=== PATIENT | female | born 1970 | race Caucasian/White ===

== ENCOUNTER 2020-12-27 15:06 | Emergency (ER) | payer BC, MEDICAID ==
--- NOTE | 2020-12-27 15:31 | EDM.PDOC ---
ED HPI GENERAL MEDICAL PROBLEM - General Chief Complaint: ENT Problem Stated Complaint: DENTAL COMPLAINT Time Seen by Provider: 12/27/20 15:12 Source of Information: Reports: Patient History Limitations: Reports: No Limitations - History of Present Illness INITIAL COMMENTS - FREE TEXT/NARRATIVE: The patient presents with left upper dental pain and swelling. She had some dental work done on last Monday. She then started having more pain a day or two later. She went to the walk in clinic and they gave her some hydrocodone. She now has more swelling. She has no fever or chills. Onset: Gradual Location: Reports: Face Quality: Reports: Sharp Severity: Moderate Improves with: Reports: None Worsens with: Reports: None Associated Symptoms: Reports: No Other Symptoms - Related Data Allergies Allergy/AdvReac Type Severity Reaction Status Date / Time No Known Allergies Allergy Verified 12/27/20 15:19 Home Meds: Home Meds Penicillin V Potassium 500 mg PO Q6HR #40 tab 12/27/20 [Rx] Past Medical History - Past Health History Medical/Surgical History: Denies Medical/Surgical History Social & Family History - Tobacco Use Tobacco Use Status *Q: Never Tobacco User - Recreational Drug Use Recreational Drug Use: No ED ROS ENT - Review of Systems Review Of Systems: See Below Constitutional: Reports: No Symptoms HEENT: Reports: Dental Pain (and facial swelling) Respiratory: Reports: No Symptoms Cardiovascular: Reports: No Symptoms Endocrine: Reports: No Symptoms GI/Abdominal: Reports: No Symptoms ED EXAM, ENT - Physical Exam Exam: See Below Exam Limited By: No Limitations General Appearance: Alert, No Apparent Distress Ears: Normal External Exam Nose: Normal Inspection Mouth/Throat: Other (Edema and erythema with pain upon palpation to the left upper medial jaw line. There is also a fluid colection.) ED I&D PROCEDURES - I&D Site: Mouth Skin prep: Saline Local anesthesia - Lidocaine (Xylocaine): Other (Lulli jose elias) Local Anesthetic Volume: 1cc Area Incised With: Needle Drainage: Purulent, Moderate Amount Complications: No Course - Vital Signs Last Recorded V/S: Last Vital Signs Temp 97.5 F 12/27/20 15:16 Pulse 83 12/27/20 15:16 Resp 18 12/27/20 15:16 BP 167/90 H 12/27/20 15:16 Pulse Ox 93 L 12/27/20 15:16 - Re-Assessments/Exams Free Text/Narrative Re-Assessment/Exam: 12/27/20 15:31 I had the patient use some topical numbing medication and I used a needle to open up the pustule. I will get her on some antibiotics. Departure - Departure Time of Disposition: 15:40 Disposition: Home, Self-Care 01 Condition: Good Clinical Impression: Dental abscess - Discharge Information *PRESCRIPTION DRUG MONITORING PROGRAM REVIEWED*: Not Applicable *COPY OF PRESCRIPTION DRUG MONITORING REPORT IN PATIENT RUTHIE: Not Applicable Prescriptions: Penicillin V Potassium 500 mg PO Q6HR #40 tab Referrals: Criss Hernandez NP [Primary Care Provider] - Forms: ED Department Discharge Additional Instructions: Take the penicillin VK as prescribed. Put warm compresses on your face a few times per day. Sleep with a few pillows at night to help avoid more swelling. Follow up with your dentist. Please return if you are worse. Sepsis Event Note (ED) - Evaluation Sepsis Screening Result: No Definite Risk - Focused Exam Vital Signs: Vital Signs Temp Pulse Resp BP Pulse Ox 12/27/20 15:16 97.5 F 83 18 167/90 H 93 L
== END 2020-12-27 15:53 | disposition home or self-care (01) ==
LOC: JD.ED 15:06
DX: K04.7 Periapical abscess without sinus (principal)
CPT/HCPCS: 40800; 41800; 99282-25; 99283

== ENCOUNTER 2021-07-28 06:20 | Day surgery (SDC) | payer MEDICAID ==
--- NOTE | 2021-07-28 06:18 | PCM.PREANE ---
Preanesthetic Assessment - Procedure Proposed Procedure: D and C - Anesthesia/Transfusion/Family Hx Anesthesia History: No Prior Anesthesia Family History of Anesthesia Reaction: No Transfusion History: Prior Transfusion Without Reaction Intubation History: Unknown - Review of Systems General: No Symptoms (Obesity) Pulmonary: No Symptoms Cardiovascular: No Symptoms, Palpitations (anxiety) Gastrointestinal: No Symptoms (GERD-controlled) Neurological: No Symptoms, Headache Other: Reports: Thyroid Problems (Hypothyroid), Sinus Problem (seasonal allergies), Anxiety - Physical Assessment NPO Status Date: 07/27/21 NPO Status Time: 19:00 Vital Signs: HR: 61 Sat: 96% Temp: 97 B/P: 145/71 Resp: 16 Height: 1.63 m Weight: 106 kg ASA Class: 3 Mental Status: Alert & Oriented x3 Airway Class: Mallampati = 2 Dentition: Reports: Normal Dentition, Caries Thyro-Mental Finger Breadths: 3 Mouth Opening Finger Breadths: 3 ROM/Head Extension: Full Lungs: Clear to Auscultation, Normal Respiratory Effort Cardiovascular: Regular Rate, Regular Rhythm, No Murmurs - Lab Values: All labs reviewed and noted and within acceptable ranges to proceed with scheduled procedure. - Allergies Allergies/Adverse Reactions: Allergies Allergy/AdvReac Type Severity Reaction Status Date / Time No Known Allergies Allergy Verified 07/27/21 11:55 - Anesthesia Plan Pre-Op Medication Ordered: None - Acknowledgements Anesthesia Type Planned: General Anesthesia, MAC Pt an Appropriate Candidate for the Planned Anesthesia: Yes Alternatives and Risks of Anesthesia Discussed w Pt/Guardian: Yes Pt/Guardian Understands and Agrees with Anesthesia Plan: Yes PreAnesthesia Questionnaire - Past Health History Medical/Surgical History: Denies Medical/Surgical History HEENT History: Reports: None Cardiovascular History: Reports: None Respiratory History: Reports: None Gastrointestinal History: Reports: None Genitourinary History: Reports: None [employer] History: Reports: None Musculoskeletal History: Reports: None Neurological History: Reports: None Psychiatric History: Reports: None Endocrine/Metabolic History: Reports: Hypothyroidism, Obesity/BMI 30+ Hematologic History: Reports: None Immunologic History: Reports: None Oncologic (Cancer) History: Reports: None Dermatologic History: Reports: None - Infectious Disease History Infectious Disease History: Reports: None - Past Surgical History Head Surgeries/Procedures: Reports: None HEENT Surgical History: Reports: None Cardiovascular Surgical History: Reports: None Respiratory Surgical History: Reports: None GI Surgical History: Reports: None Female Surgical History: Reports: None Male Surgical History: Reports: None Endocrine Surgical History: Reports: None Neurological Surgical History: Reports: None Musculoskeletal Surgical History: Reports: None Oncologic Surgical History: Reports: None Dermatological Surgical History: Reports: None - SUBSTANCE USE Tobacco Use Status *Q: Never Tobacco User Recreational Drug Use History: No - HOME MEDS Home Medications: Home Meds ALPRAZolam [Xanax] 0.25 mg PO DAILY PRN 07/27/21 [History] Fluticasone Propionate [Flonase] 1 dose NASBOTH ASDIRECTED 07/27/21 [History] Levothyroxine Sodium [Levothyroxine] 88 mcg PO DAILY 07/27/21 [History] Meloxicam [Mobic] 7.5 mg PO DAILY 07/27/21 [History] Omeprazole Magnesium [Prilosec Otc] 20 mg PO DAILY 07/27/21 [History] Restful Legs 1 dose PO DAILY 07/27/21 [History] Terbinafine [LamISIL] 250 mg PO DAILY 07/27/21 [History] - CURRENT (IN HOUSE) MEDS Current Meds: Current Medications Lactated Ringer's (Ringers, Lactated) 1,000 mls @ 125 mls/hr IV ASDIRECTED MAURICIO Stop: 07/28/21 23:00 Lidocaine/Sodium Bicarbonate (Lidocaine 1%/Sod Bicarbonate In Ns 8.4% 1 Ml Sy ringe) 0.25 ml IDERM ONETIME PRN PRN Reason: Prior to IV Start Stop: 07/28/21 18:00 Sodium Chloride (Sodium Chloride 0.9% 10 Ml Syringe) 10 ml FLUSH ASDIRECTED PRN PRN Reason: Keep Vein Open Stop: 07/28/21 18:00
[~2021-07-28 06:20] MED LIST: Lactated Ringers 1,000 ML IV SCH; Lidocaine 1%/Sod Bicarbonate in NS 8.4% 1 ML Syringe IDERM PRN; Sodium Chloride 0.9% 10 ML Syringe FLUSH PRN
[2021-07-28] MEDS ORDERED: Dexamethasone 4 MG/ML 5 ML MDV ONE (06:42)
[2021-07-28] MEDS ORDERED: Ketorolac 30 MG/ML SDV ONE (06:42)
[2021-07-28] MEDS ORDERED: Midazolam 1 MG/ML 2 ML SDV ONE (06:42)
[2021-07-28] MEDS ORDERED: Propofol 200 MG/20 ML SDV ONE (06:42)
[2021-07-28] MEDS ORDERED: Lactated Ringers 1,000 ML ONE (06:42)
[2021-07-28] MEDS ORDERED: Ondansetron 4 MG/2 ML SDV ONE (06:42)
[2021-07-28] MEDS ORDERED: fentaNYL 250 MCG/5 ML SDV ONE (06:44)
[2021-07-28] MEDS ORDERED: Rocuronium 50 MG/5 ML Vial ONE (07:19)
[2021-07-28] MEDS ORDERED: ePHEDrine 50 MG/ML SDV ONE (07:55)
[2021-07-28] MEDS ORDERED: HYDROmorphone 0.5 MG/0.5 ML Syringe IVPUSH PRN (08:17)
[2021-07-28] MEDS ORDERED: diphenhydrAMINE 50 MG/ML SDV IVPUSH PRN (08:17)
[2021-07-28] MEDS ORDERED: fentaNYL 100 MCG/2 ML SDV IVPUSH PRN (08:17)
[2021-07-28] MEDS ORDERED: Ondansetron 4 MG/2 ML SDV IVPUSH PRN (08:17)
[2021-07-28] MEDS ORDERED: ePHEDrine 50 MG/ML SDV IVPUSH PRN (08:17)
[2021-07-28] MEDS ORDERED: Succinylcholine/Sod PF 100 MG/5 ML SYRINGE IV ONE (08:28)
--- NOTE | 2021-07-28 08:46 | PCM.OPNOTE ---
- General Post-Op/Procedure Note Date of Surgery/Procedure: 07/28/21 Operative Procedure(s): dilation and curettage Findings: normal pelvic anatomy Pre Op Diagnosis: postmenopausal bleeding Post-Op Diagnosis: Same Primary Surgeon: Talisha Rogers Output, Urine Amount: 5 EBL in mLs: 600 Complications: None Condition: Good Free Text/Narrative:: Under general anaesthetic in a dorsal lithotomy position, the patient was prepped and draped in the usual sterile manner. Bimanual exam prior to prepping revealed a mobile, anteverted non-enlarged uterus. Patient had voided immediately prior to procedure. A self retaining speculum was placed in the vagina and the anterior lip of the cervix was grasped with a single toothed tenaculum and brought forward. Lacrimal dilators used to cannualte cervix initially. Taking care not to perforate the uterus, a sound was passed inside to measure the length of the uterus. A series of Hegar dilators were then inserted sequentially into the cervical os up to a size of 8 mm. The smallest curette available was then used to perform the curettage. In a sequential order, being sure to cover all regions of the uterine cavity, sweeps with the curette were performed to obtain tissue. Following this, a clamp was gentle introduced into the cavity, closed, and brought out in an attempt to obtain any remaining tissue or grasp any possible polyps. Only small fragments of tissue were returned. The tissue samples were collected and sent to pathology. The tenaculum was then removed and the cervix examined for hemostasis which was achieved. Finally the weighted speculum was removed. The patient tolerated the procedure well and was brought to the recovery room in a stable condition. At the end of the procedure all sponges and instruments were counted and correct. The blood loss was minimal and there were no complications.
--- NOTE | 2021-07-28 08:55 | PCM.POSTAN ---
POST ANESTHESIA ASSESSMENT - MENTAL STATUS Mental Status: Alert - VITAL SIGNS Vital Signs: Last Vital Signs Temp 98.5 07/28/21 0845 Pulse 91 07/28/21 0845 Resp 10 07/28/21 0845 BP 119/71 07/28/21 0845 Pulse Ox 93% 07/28/21 0845 - RESPIRATORY Respiratory Status: Respiratory Rate WNL, Airway Patent, O2 Saturation Stable, Supplemental Oxygen - CARDIOVASCULAR CV Status: Pulse Rate WNL, Blood Pressure Stable - GASTROINTESTINAL GI Status: No Symptoms - POST OP HYDRATION Hydration Status: Adequate & Stable
== END 2021-07-28 11:45 | disposition home or self-care (01) ==
LOC: JD.SDS 06:20
PROVIDERS: ATTEND Obstetrics & Gynecology
DX: N85.01 Benign endometrial hyperplasia (principal); E07.9 Disorder of thyroid, unspecified; F41.9 Anxiety disorder, unspecified; K21.9 Gastro-esophageal reflux disease without esophagitis; E66.9 Obesity, unspecified; E03.9 Hypothyroidism, unspecified; Z68.39 Body mass index [BMI] 39.0-39.9, adult; Z91.048 Other nonmedicinal substance allergy status; Z79.899 Other long term (current) drug therapy; Z79.890 Hormone replacement therapy
CPT/HCPCS: 36415; 58120; 81025; 85025; 86850; 86900; 86901; J1100; J1885; J2250; J2405; J2704; J2710; J3010; J7120; 00940; J0330

== ENCOUNTER 2021-08-21 10:55 | Emergency (ER) | payer MEDICAID ==
[2021-08-21] MEDS ORDERED: Sodium Chloride 0.9% 10 ML Syringe FLUSH PRN ×2 (11:12→13:08)
[2021-08-21] MEDS: Sodium Chloride 0.9% 500 ML IV ONE ×2 (11:37→13:07)
--- NOTE | 2021-08-21 12:28 | EDM.PDOC ---
ED HPI GENERAL MEDICAL PROBLEM - General Chief Complaint: Syncope Stated Complaint: EMS Time Seen by Provider: 08/21/21 11:06 Source of Information: Reports: Patient History Limitations: Reports: No Limitations - History of Present Illness INITIAL COMMENTS - FREE TEXT/NARRATIVE: 51-year-old female presents the emergency department today with complaints of a syncopal episode x3 at home this morning. Of note, patient was just discharged from this hospital yesterday after having an 11-day stay here for Covid. Patient states she was sent home on oxygen 1 to 2 L at rest and 3 to 4 L with activity. She states that when she was discharged home yesterday she felt fairly well. She went about a bite to eat and got home and set up her home oxygen and then went to bed. She states she only drink 1 glass of water from yesterday up until she arrived in the emergency department today. She states she woke this morning and went to the bathroom. She states that she was sitting on the toilet she began to feel dizzy and her noted that he thought she passed out. She did end up falling and hitting her head on her oxygen concentrator. Of note, the patient does take Eliquis twice daily. She states this episode only lasted for a very short period of time. And the assisted her back to her bed. Initially she was only on 1 L of oxygen per nasal cannula. He did increase this to 3 L and she became more arousable at that time. He then phoned 911 to have the patient transported here to the hospital. Patient states that once they paramedics arrived on scene they were assisting her onto the gurney and she had a near syncopal episode at that time as well. She denies any chest pain or shortness of breath noted with the occurrences. She denies any nausea or diaphoresis at the time of the syncopal and near syncopal episodes. Patient arrived in the emergency department and her O2 saturations were only 84% on room air. The nursing staff placed her on 2 L of oxygen per nasal cannula and sats only came up to 88%. They then increased her to 4 to 6 L and saturations remained less than 90% so they elected to put a simple mask on her at 10 L. - Related Data Allergies Allergy/AdvReac Type Severity Reaction Status Date / Time No Known Allergies Allergy Verified 08/10/21 15:12 Home Meds: Home Meds ALPRAZolam [Xanax] 0.25 mg PO DAILY PRN 07/27/21 [History] Fluticasone Propionate [Flonase] 1 dose NASBOTH ASDIRECTED 07/27/21 [History] Levothyroxine Sodium [Levothyroxine] 88 mcg PO DAILY 07/27/21 [History] Omeprazole Magnesium [Prilosec Otc] 20 mg PO DAILY 07/27/21 [History] Restful Legs 1 tab PO BEDTIME 07/27/21 [History] Apixaban [Eliquis] 5 mg PO BID 21 Days #42 tablet 08/20/21 [Rx] predniSONE [Prednisone] See Taper PO DAILY #30 tab.ds.pk 08/20/21 [Rx] Past Medical History - Past Health History Medical/Surgical History: Denies Medical/Surgical History HEENT History: Reports: Impaired Vision Other HEENT History: reading glasses. Cardiovascular History: Reports: None Respiratory History: Reports: Pneumonia, Recurrent Other Respiratory History: +) COVID, hypoxia--home O2. Gastrointestinal History: Reports: GERD Genitourinary History: Reports: None OCCUPATIONAL THERAPY PROGRAM DIRECTOR History: Reports: None Other OCCUPATIONAL THERAPY PROGRAM DIRECTOR History: D&C july 28 Musculoskeletal History: Reports: None Neurological History: Reports: None Psychiatric History: Reports: Anxiety, Depression Endocrine/Metabolic History: Reports: Hypothyroidism, Obesity/BMI 30+ Hematologic History: Reports: Anemia, Blood Transfusion(s) Immunologic History: Reports: None Oncologic (Cancer) History: Reports: None Dermatologic History: Reports: None - Infectious Disease History Infectious Disease History: Reports: Chicken Pox, Novel Coronavirus, Shingles - Past Surgical History Female Surgical History: Reports: D&C Social & Family History - Tobacco Use Tobacco Use Status *Q: Never Tobacco User Second Hand Smoke Exposure: No - Caffeine Use Caffeine Use: Reports: Coffee, Soda - Recreational Drug Use Recreational Drug Use: No - Living Situation & Occupation Living situation: Reports: , with Spouse 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 - Physical Exam Exam: See Below Exam Limited By: No Limitations General Appearance: Alert, WD/WN, No Apparent Distress Ears: Normal External Exam, Hearing Grossly Normal Nose: Normal Inspection, Normal Mucosa Throat/Mouth: Normal Inspection, Normal Lips, Normal Voice, No Airway Compromise Head Exam: Atraumatic, Normocephalic Neck: Normal Inspection, Supple Respiratory/Chest: Normal Breath Sounds, No Accessory Muscle Use, Chest Non- Tender, Respiratory Distress, Crackles (Fine crackles noted to all hall.) Cardiovascular: Normal Peripheral Pulses, Regular Rate, Rhythm, No Edema, No Murmur GI/Abdominal: Normal Bowel Sounds, Soft, Non-Tender, No Distention (Female) Exam: Deferred Rectal (Female) Exam: Deferred Neuro Exam (Abbreviated): Alert, Oriented, Normal Cognition Back Exam: Normal Inspection, Full Range of Motion Extremities: Normal Inspection, Normal Range of Motion, Non-Tender, No Pedal Edema, Normal Capillary Refill Psychiatric: Normal Affect, Normal Mood Skin Exam: Warm, Dry, Intact, Normal Color, No Rash #1 Interpretation EKG Date: 08/21/21 Time: 11:06 Rhythm: NSR Rate (Beats/Min): 59 [place]: Normal P-Wave: Present QRS: Normal ST-T: Normal QT: Normal EKG Interpretation Comments: Per Dr. Pena interpretation: Sinus rhythm at 59 bpm; low voltage, precordial leads; abnormal R wave progression, early transition; nonspecific T abnormalities in the lateral leads Course - Vital Signs Text/Narrative:: Stated above, patient presents with syncopal episode x3 this morning. Recent hospitalization for 11 days for COVID-19. At the time of my exam, the patient is awake alert and oriented. Was satting 100% on 10 L simple mask. I did decrease her oxygen to 3 L per nasal cannula and saturations remained at 92%. Physical exam does reveal fine crackles noted to all hall. Remainder of exam is otherwise unremarkable. Will obtain lab studies, EKG, chest x-ray and a CT of the head. We will also have nursing staff obtain orthostatic vital signs as I do believe she is dehydrated as she has not had much in the way of p.o. fluids in the past 24 hours. Last Recorded V/S: Last Vital Signs Temp 96.3 F L 08/21/21 10:55 Pulse 78 08/21/21 10:55 Resp 14 08/21/21 10:55 BP 88/41 L 08/21/21 10:55 Pulse Ox 84 L 08/21/21 10:55 Orthostatic Blood Pressure [ 74/43 Standing] Orthostatic Blood Pressure [ 89/61 Sitting] Orthostatic Blood Pressure [ 93/54 Supine] - Orders/Labs/Meds Orders: Active Orders 24 hr Category Date Time Status EKG Documentation Completion [RC] STAT Care 08/21/21 11:12 Active Orthostatic Vital Signs [RC] ASDIRECTED Care 08/21/21 11:16 Active Oxygen Therapy, ED [RC] ASDIRECTED Care 08/21/21 10:15 Active Peripheral IV Care [RC] . DIRECTED Care 08/21/21 11:13 Active CTA Chest W WO Contrast [Ang Chest] [CT] Stat Exams 08/21/21 12:51 Taken Chest 1V Frontal [CR] Stat Exams 08/21/21 11:12 Taken Head wo Cont [CT] Stat Exams 08/21/21 11:14 Taken Sodium Chloride 0.9% [Saline Flush] Med 08/21/21 11:12 Active 10 ml FLUSH ASDIRECTED PRN Sodium Chloride 0.9% [Saline Flush] Med 08/21/21 13:08 Active 10 ml FLUSH ONETIME PRN Peripheral IV Insertion Adult [OM.PC] Stat Oth 08/21/21 11:12 Ordered Medication Orders Sodium Chloride (Sodium Chloride 0.9% 10 Ml Syringe) 10 ml FLUSH ASDIRECTED PRN PRN Reason: Keep Vein Open Last Admin: 08/21/21 12:00 Dose: 10 ml Documented by: RAIN Sodium Chloride (Sodium Chloride 0.9% 10 Ml Syringe) 10 ml FLUSH ONETIME PRN PRN Reason: Keep Vein Open Last Admin: 08/21/21 14:06 Dose: 10 ml Documented by: GENNY Labs: Laboratory Tests 08/21/21 08/21/21 08/21/21 Range/Units 11:20 11:50 11:50 WBC 13.36 H (3.98-10.04) K/mm3 RBC 4.49 (3.98-5.22) M/mm3 Hgb 13.7 (11.2-15.7) gm/dl Hct 41.7 (34.1-44.9) % MCV 92.9 (79.4-94.8) fl MCH 30.5 (25.6-32.2) pg MCHC 32.9 (32.2-35.5) g/dl RDW Std Deviation 44.8 (36.4-46.3) fL Plt Count 610 H (182-369) K/mm3 MPV 10.3 (9.4-12.3) fl Neut % (Auto) 75.4 H (34.0-71.1) % Lymph % (Auto) 16.8 L (19.3-51.7) % [place] % (Auto) 4.6 L (4.7-12.5) % Eos % (Auto) 0 L (0.7-5.8) Baso % (Auto) 0.1 (0.1-1.2) % Neut # (Auto) 10.07 H (1.56-6.13) K/mm3 Lymph # (Auto) 2.24 (1.18-3.74) K/mm3 [place] # (Auto) 0.62 H (0.24-0.36) K/mm3 Eos # (Auto) 0.00 L (0.04-0.36) K/mm3 Baso # (Auto) 0.02 (0.01-0.08) K/mm3 PT 10.6 (9.7-12.0) SECONDS INR 0.95 D-Dimer, Quantitative 2.14 H (0.19-0.50) mg/L Sodium (136-145) mEq/L Potassium (3.5-5.1) mEq/L Chloride (98-107) mEq/L Carbon Dioxide (21-32) mEq/L Anion Gap (5-15) BUN (7-18) mg/dL Creatinine (0.55-1.02) mg/dL Est Cr Clr Drug Dosing mL/min Estimated GFR (MDRD) (>60) mL/min BUN/Creatinine Ratio (14-18) Glucose (70-99) mg/dL POC Glucose 79 (70-99) mg/dL Calcium (8.5-10.1) mg/dL Magnesium (1.8-2.4) mg/dL Total Bilirubin (0.2-1.0) mg/dL AST (15-37) U/L ALT (14-59) U/L Alkaline Phosphatase (46-116) U/L Troponin I (0.00-0.056) ng/mL C-Reactive Protein (<1.0) mg/dL NT-Pro-B Natriuret Pep (0-125) pg/mL Total Protein (6.4-8.2) g/dl Albumin (3.4-5.0) g/dl Globulin gm/dL Albumin/Globulin Ratio (1-2) TSH 3rd Generation (0.358-3.74) uIU/mL Urine Color (Yellow) Urine Appearance (Clear) Urine pH (5.0-8.0) Ur Specific [place] (1.005-1.030) Urine Protein (Negative) Urine Glucose (UA) (Negative) Urine Ketones (Negative) Urine Occult Blood (Negative) Urine Nitrite (Negative) Urine Bilirubin (Negative) Urine Urobilinogen (0.2-1.0) Ur Leukocyte Esterase (Negative) Urine RBC (0-5) /hpf Urine WBC (0-5) /hpf Ur Squamous Epith Cells (0-5) /hpf Calcium Oxalate Crystal (NONE) Urine Bacteria (FEW) /hpf Urine Mucus (FEW) /hpf 08/21/21 08/21/21 08/21/21 Range/Units 11:50 11:50 11:52 WBC (3.98-10.04) K/mm3 RBC (3.98-5.22) M/mm3 Hgb (11.2-15.7) gm/dl Hct (34.1-44.9) % MCV (79.4-94.8) fl MCH (25.6-32.2) pg MCHC (32.2-35.5) g/dl RDW Std Deviation (36.4-46.3) fL Plt Count (182-369) K/mm3 MPV (9.4-12.3) fl Neut % (Auto) (34.0-71.1) % Lymph % (Auto) (19.3-51.7) % [place] % (Auto) (4.7-12.5) % Eos % (Auto) (0.7-5.8) Baso % (Auto) (0.1-1.2) % Neut # (Auto) (1.56-6.13) K/mm3 Lymph # (Auto) (1.18-3.74) K/mm3 [place] # (Auto) (0.24-0.36) K/mm3 Eos # (Auto) (0.04-0.36) K/mm3 Baso # (Auto) (0.01-0.08) K/mm3 PT (9.7-12.0) SECONDS INR D-Dimer, Quantitative (0.19-0.50) mg/L Sodium 141 (136-145) mEq/L Potassium 3.5 (3.5-5.1) mEq/L Chloride 105 (98-107) mEq/L Carbon Dioxide 25 (21-32) mEq/L Anion Gap 14.5 (5-15) BUN 30 H (7-18) mg/dL Creatinine 1.0 (0.55-1.02) mg/dL Est Cr Clr Drug Dosing 58.76 mL/min Estimated GFR (MDRD) 59 (>60) mL/min BUN/Creatinine Ratio 30.0 H (14-18) Glucose 98 (70-99) mg/dL POC Glucose (70-99) mg/dL Calcium 8.1 L (8.5-10.1) mg/dL Magnesium 2.5 H (1.8-2.4) mg/dL Total Bilirubin 0.7 (0.2-1.0) mg/dL AST 20 (15-37) U/L ALT 74 H (14-59) U/L Alkaline Phosphatase 50 (46-116) U/L Troponin I < 0.017 (0.00-0.056) ng/mL C-Reactive Protein 0.5 (<1.0) mg/dL NT-Pro-B Natriuret Pep 90 (0-125) pg/mL Total Protein 6.5 (6.4-8.2) g/dl Albumin 2.8 L (3.4-5.0) g/dl Globulin 3.7 gm/dL Albumin/Globulin Ratio 0.8 L (1-2) TSH 3rd Generation 5.371 H (0.358-3.74) uIU/mL Urine Color (Yellow) Urine Appearance (Clear) Urine pH (5.0-8.0) Ur Specific [place] (1.005-1.030) Urine Protein (Negative) Urine Glucose (UA) (Negative) Urine Ketones (Negative) Urine Occult Blood (Negative) Urine Nitrite (Negative) Urine Bilirubin (Negative) Urine Urobilinogen (0.2-1.0) Ur Leukocyte Esterase (Negative) Urine RBC (0-5) /hpf Urine WBC (0-5) /hpf Ur Squamous Epith Cells (0-5) /hpf Calcium Oxalate Crystal (NONE) Urine Bacteria (FEW) /hpf Urine Mucus (FEW) /hpf 08/21/21 Range/Units 13:20 WBC (3.98-10.04) K/mm3 RBC (3.98-5.22) M/mm3 Hgb (11.2-15.7) gm/dl Hct (34.1-44.9) % MCV (79.4-94.8) fl MCH (25.6-32.2) pg MCHC (32.2-35.5) g/dl RDW Std Deviation (36.4-46.3) fL Plt Count (182-369) K/mm3 MPV (9.4-12.3) fl Neut % (Auto) (34.0-71.1) % Lymph % (Auto) (19.3-51.7) % [place] % (Auto) (4.7-12.5) % Eos % (Auto) (0.7-5.8) Baso % (Auto) (0.1-1.2) % Neut # (Auto) (1.56-6.13) K/mm3 Lymph # (Auto) (1.18-3.74) K/mm3 [place] # (Auto) (0.24-0.36) K/mm3 Eos # (Auto) (0.04-0.36) K/mm3 Baso # (Auto) (0.01-0.08) K/mm3 PT (9.7-12.0) SECONDS INR D-Dimer, Quantitative (0.19-0.50) mg/L Sodium (136-145) mEq/L Potassium (3.5-5.1) mEq/L Chloride (98-107) mEq/L Carbon Dioxide (21-32) mEq/L Anion Gap (5-15) BUN (7-18) mg/dL Creatinine (0.55-1.02) mg/dL Est Cr Clr Drug Dosing mL/min Estimated GFR (MDRD) (>60) mL/min BUN/Creatinine Ratio (14-18) Glucose (70-99) mg/dL POC Glucose (70-99) mg/dL Calcium (8.5-10.1) mg/dL Magnesium (1.8-2.4) mg/dL Total Bilirubin (0.2-1.0) mg/dL AST (15-37) U/L ALT (14-59) U/L Alkaline Phosphatase (46-116) U/L Troponin I (0.00-0.056) ng/mL C-Reactive Protein (<1.0) mg/dL NT-Pro-B Natriuret Pep (0-125) pg/mL Total Protein (6.4-8.2) g/dl Albumin (3.4-5.0) g/dl Globulin gm/dL Albumin/Globulin Ratio (1-2) TSH 3rd Generation (0.358-3.74) uIU/mL Urine Color Yellow (Yellow) Urine Appearance Clear (Clear) Urine pH 6.0 (5.0-8.0) Ur Specific [place] > or = 1.030 (1.005-1.030) Urine Protein 1+ H (Negative) Urine Glucose (UA) Negative (Negative) Urine Ketones Negative (Negative) Urine Occult Blood Negative (Negative) Urine Nitrite Negative (Negative) Urine Bilirubin Negative (Negative) Urine Urobilinogen 0.2 (0.2-1.0) Ur Leukocyte Esterase Negative (Negative) Urine RBC 0-5 (0-5) /hpf Urine WBC 0-5 (0-5) /hpf Ur Squamous Epith Cells 0-5 (0-5) /hpf Calcium Oxalate Crystal Few H (NONE) Urine Bacteria Few (FEW) /hpf Urine Mucus Many H (FEW) /hpf Meds: Medications Generic Name Dose Route Start Last Admin Trade Name Freq PRN Reason Stop Dose Admin Sodium Chloride 10 ml 08/21/21 11:12 08/21/21 12:00 Sodium Chloride 0.9% 10 Ml Syringe FLUSH 10 ml ASDIRECTED PRN Administration Keep Vein Open Sodium Chloride 10 ml 08/21/21 13:08 08/21/21 14:06 Sodium Chloride 0.9% 10 Ml Syringe FLUSH 10 ml ONETIME PRN Administration Keep Vein Open Discontinued Medications Generic Name Dose Route Start Last Admin Trade Name Freq PRN Reason Stop Dose Admin Sodium Chloride 500 mls @ 999 mls/hr 08/21/21 11:14 08/21/21 13:07 Normal Saline IV 08/21/21 11:44 999 mls/hr ONETIME ONE Administration Iopamidol 100 ml 08/21/21 13:08 08/21/21 14:06 Iopamidol 755 Mg/Ml 100 Ml Bottle IVPUSH 08/21/21 13:09 100 ml ONETIME ONE Administration Sodium Chloride 20 ml 08/21/21 13:08 08/21/21 14:07 Sodium Chloride 0.9% 10 Ml Sdv IARTIC 08/21/21 13:09 Not Given ONETIME ONE - Re-Assessments/Exams Free Text/Narrative Re-Assessment/Exam: 08/21/21 12:33 Orthostatic vital signs reveal supine blood pressure 93/54 with a heart rate of 52; sitting 89/61 with a heart rate of 82; standing 74/43 with a heart rate of 116 Patient is indeed orthostatic. I have ordered for the patient to receive a 500 mL bolus of normal saline. 08/21/21 14:28 v Rad Radiologist impression CT of the head without contrast: No acute intracranial abnormality V rad radiologist impression CT of the chest: 1. No evidence of pulmonary embolism. 2. No evidence of aortic dissection. 3. Diffuse patchy airspace opacities noted throughout the lungs bilaterally. 4. Commonly reported imaging features of COVID-19 pneumonia are present. Other processes such as influenza pneumonia and organizing pneumonia, as can be seen with drug spasticity and connective tissue disease, can cause a similar imaging pattern. We will view of the chest was reviewed by myself and reveals scattered areas of infiltrates to bilateral lungs. Formal radiologist report is pending. 08/21/21 14:32 Hematology reveals WBC of 13.36, hemoglobin 13.7, hematocrit 41.7, platelet count 610 Coagulation reveals a pro time of 10.6, INR 0.95, D-dimer 2.14 Chemistry reveals a sodium of 141, potassium 3.5, carbon dioxide 25, anion gap 14.5, BUN 30, creatinine 1.0, GFR 59, glucose 98, calcium 8.1, magnesium 2.5, AST 20, ALT 74, troponin less than 0.017, C-reactive protein 0.5, proBNP 90, TSH 5.371 Urinalysis reveals 1+ protein, nitrite negative, leukocytes esterase negative 08/21/21 15:03 Patient states she is feeling more alert. She is down to 1 L of oxygen per nasal cannula satting 96 to 98%. She has ordered a lunch tray. We will allow her to eat and then have nursing staff attempt to ambulate the patient to see how she does. 08/21/21 17:17 Patient ambulated in the [place] with nursing staff on 3 L of oxygen per nasal cannula. She states she does feel weak however she is not dizzy. Blood pressures were checked after ambulation and they were stable. She will be discharged home. Departure - Departure Time of Disposition: 17:18 Disposition: Home, Self-Care 01 Condition: Good Clinical Impression: Syncope Qualifiers: Syncope type: unspecified Qualified Code(s): R55 - Syncope and collapse - Discharge Information Instructions: Dehydration, Adult, [id number], Syncope, [id number], Hypotension, [id number] Referrals: Criss Hernandez NP [Primary Care Provider] - Forms: ED Department Discharge Additional Instructions: You were seen in the emergency department today having episodes of fainting at home. Lab studies as well as CT scan and x-rays were completed. Labs did reveal that you are slightly dehydrated. You were given 1 L of IV fluids while in the emergency department and this did seem to help. CT scan of the chest and head were unremarkable. You will be discharged home with recommendations that you follow discharge instructions from the hospital yesterday. You need plenty of rest and you need to drink 8 ounces of water every hour while awake to remain hydrated. Eat small frequent meals. Increase oxygen to 3 L when up and ambulating in your home. Follow-up with your primary care provided as recommended on your discharge instructions you were given from yesterday. Should your condition worsen or change, do not hesitate returning to the emergency department Sepsis Event Note (ED) - Evaluation Sepsis Screening Result: No Definite Risk - Focused Exam Vital Signs: Vital Signs Temp Pulse Resp BP Pulse Ox 08/21/21 10:55 96.3 F L 78 14 88/41 L 84 L - My Orders Last 24 Hours: My Active Orders 08/21/21 10:15 Oxygen Therapy, ED [RC] ASDIRECTED 08/21/21 11:12 EKG Documentation Completion [RC] STAT Chest 1V Frontal [CR] Stat Sodium Chloride 0.9% [Saline Flush] 10 ml FLUSH ASDIRECTED PRN Peripheral IV Insertion Adult [OM.PC] Stat 08/21/21 11:13 Peripheral IV Care [RC] . DIRECTED 08/21/21 11:14 Head wo Cont [CT] Stat 08/21/21 11:16 Orthostatic Vital Signs [RC] ASDIRECTED 08/21/21 12:51 CTA Chest W WO Contrast [Ang Chest] [CT] Stat 08/21/21 13:08 Sodium Chloride 0.9% [Saline Flush] 10 ml FLUSH ONETIME PRN - Assessment/Plan Last 24 Hours: My Active Orders 08/21/21 10:15 Oxygen Therapy, ED [RC] ASDIRECTED 08/21/21 11:12 EKG Documentation Completion [RC] STAT Chest 1V Frontal [CR] Stat Sodium Chloride 0.9% [Saline Flush] 10 ml FLUSH ASDIRECTED PRN Peripheral IV Insertion Adult [OM.PC] Stat 08/21/21 11:13 Peripheral IV Care [RC] . DIRECTED 08/21/21 11:14 Head wo Cont [CT] Stat 08/21/21 11:16 Orthostatic Vital Signs [RC] ASDIRECTED 08/21/21 12:51 CTA Chest W WO Contrast [Ang Chest] [CT] Stat 08/21/21 13:08 Sodium Chloride 0.9% [Saline Flush] 10 ml FLUSH ONETIME PRN
[2021-08-21] MEDS ORDERED: Iopamidol 755 Mg/ML 100 ML Bottle IVPUSH ONE (13:08)
[2021-08-21] MEDS ORDERED: Sodium Chloride 0.9% 10 ML SDV IARTIC ONE (13:08)
--- NOTE | 2021-08-22 08:52 | CT ---
Head CT Technique: Multiple axial sections through the brain were obtained. Intravenous contrast was not utilized. Reconstructed coronal and sagittal images were obtained. Comparison: No prior intracranial imaging is available. Findings: Ventricles along with basal cisterns and sulci over the convexities are within normal limits for the patient's age. No abnormal parenchymal densities are seen. No evidence of intracranial hemorrhage is seen. No midline shift or mass-effect is seen. Bone window settings were reviewed. Visualized mastoid sinuses and paranasal sinuses show nothing acute. No acute calvarial abnormality is appreciated. Impression: 1. Nothing acute is seen on noncontrast head CT study. Diagnostic code #1 I agree with preliminary report from [facility], finalized on 08/21/21, 2:11 PM FINANCE BUSINESS PARTNER, code 1
--- NOTE | 2021-08-22 08:57 | CT ---
CT chest Technique: Multiple axial sections were obtained from above the dome of the diaphragm inferiorly through the pubic symphysis. Intravenous contrast was utilized. Study has been performed as a pulmonary angiogram protocol. Comparison: Prior CT chest of 08/10/21 as well as chest x-ray of 08/15/21. Findings: Pulmonary arteries are well opacified. No filling are seen defects to indicate pulmonary embolism. Thoracic aorta shows no aneurysm. Mediastinum shows no adenopathy. No axillary adenopathy is seen. No pericardial thickening is seen. Visualized upper abdominal structures show nothing acute. Lung window settings were reviewed. Diffuse patchy areas of increased density are seen throughout both sides of the chest. Findings are fairly stable from prior chest x-ray and increased from prior chest CT. Bone window settings were reviewed which show no acute osseous finding. Impression: 1. Increased density throughout both sides of the chest which have worsened from prior chest CT and appears similar to prior chest x-ray. Findings are compatible with continuing COVID pneumonia. 2. No findings of pulmonary embolism are seen. Diagnostic code #3 I agree with preliminary report from [facility], finalized on 08/21/21, 3:09 PM STAFF EDUCATOR, code 1
--- NOTE | 2021-08-24 07:22 | CR ---
Chest: Portable view of the chest was obtained. Comparison: Prior chest x-ray of 08/15/21. Patchy increased density is seen on both sides of the chest. Findings are fairly stable from prior chest x-ray. Heart size and mediastinum are within normal limits for portable technique. Bony structures show nothing acute. Impression: 1. Stable densities within both sides of the chest from prior chest x-ray. Findings compatible with continuing COVID pneumonia. Diagnostic code #3
== END 2021-08-21 19:20 | disposition home or self-care (01) ==
LOC: JD.ED 10:55 → SUPCPDRO 10:55 → JD.ED 19:20
DX: R55 Syncope and collapse (principal); K21.9 Gastro-esophageal reflux disease without esophagitis; E03.9 Hypothyroidism, unspecified; E66.9 Obesity, unspecified; Z68.38 Body mass index [BMI] 38.0-38.9, adult; Z86.16 Personal history of COVID-19; Z79.899 Other long term (current) drug therapy; Z79.01 Long term (current) use of anticoagulants
CPT/HCPCS: 36415; 70450; 71045; 71275; 80053; 81001; 82947; 83735; 83880; 84443; 84484; 85025; 85379; 85610; 86140; 93005; 99285; J7030; Q9967

== ENCOUNTER 2023-05-02 07:05 | Day surgery (SDC) | payer MEDICAID ==
[~2023-05-02 07:05] MED LIST changes: -Lidocaine 1%/Sod Bicarbonate in NS 8.4% 1 ML Syringe IDERM PRN; +Sodium Chloride 0.9% 10 ML Syringe FLUSH SCH
[2023-05-02] MEDS ORDERED: Bupivacaine 0.25%/EPINEPHrine 1:200,000 30 ML SDV ONE (07:24)
[2023-05-02 07:33] LABS: BASOPHILS ABSOLUTE AUTO 0.03 K/mm3 (0.01-0.08); BASOPHILS PERCENT AUTO 0.5 % (0.1-1.2); EOSINOPHILS ABSOLUTE AUTO 0.11 K/mm3 (0.04-0.36); EOSINOPHILS PERCENT AUTO 1.9 (0.7-5.8); HEMATOCRIT 41.8 % (34.1-44.9); HEMOGLOBIN 13.8 gm/dl (11.2-15.7); IMMATURE GRAN ABSOLUTE AUTO 0.01 K/mm3 (0.00-0.10); IMMATURE GRAN PERCENT AUTO 0.2 % (<=1.0); MEAN CORPUSCULAR HEMOGLOBIN 30.7 pg (25.6-32.2); MEAN CORPUSCULAR VOLUME 93.1 fl (79.4-94.8); MEAN PLATELET VOLUME 11.3 fl (9.4-12.3); MONOCYTES ABSOLUTE AUTO 0.29 K/mm3 (0.24-0.36); MONOCYTES PERCENT AUTO 5.1 % (4.7-12.5); NEUTROPHILS ABSOLUTE AUTO 2.88 K/mm3 (1.56-6.13); NEUTROPHILS PERCENT AUTO 50.3 % (34.0-71.1); RED BLOOD CELL COUNT 4.49 M/mm3 (3.98-5.22); WHITE BLOOD CELL COUNT,WBC 5.72 K/mm3 (3.98-10.04)
[2023-05-02 07:35] LABS: PLATELET COUNT,PLT 272 K/mm3 (182-369)
[2023-05-02] MEDS ORDERED: Ketorolac 30 MG/ML SDV ONE (07:49)
[2023-05-02] MEDS ORDERED: Ondansetron 4 MG/2 ML SDV ONE (07:49)
[2023-05-02] MEDS ORDERED: fentaNYL 100 MCG/2 ML SDV ONE (07:50)
[2023-05-02] MEDS ORDERED: Midazolam 1 MG/ML 2 ML SDV ONE (07:50)
[2023-05-02] MEDS ORDERED: Ketamine 500 mg/10 ML MDV ONE (07:50)
[2023-05-02] MEDS ORDERED: Propofol 200 MG/20 ML SDV ONE ×2 (07:51→08:12)
[2023-05-02] MEDS ORDERED: diphenhydrAMINE 50 MG/ML SDV IVPUSH PRN (08:25)
[2023-05-02] MEDS ORDERED: Ondansetron 4 MG/2 ML SDV IVPUSH PRN (08:25)
[2023-05-02] MEDS ORDERED: fentaNYL 100 MCG/2 ML SDV IVPUSH PRN (08:25)
[2023-05-02] MEDS ORDERED: HYDROmorphone 0.5 MG/0.5 ML Syringe IVPUSH PRN (08:25)
== END 2023-05-02 10:42 | disposition home or self-care (01) ==
LOC: JD.SDS 07:05
PROVIDERS: ATTEND Obstetrics & Gynecology
DX: N95.0 Postmenopausal bleeding (principal); N85.00 Endometrial hyperplasia, unspecified; K21.9 Gastro-esophageal reflux disease without esophagitis; E03.9 Hypothyroidism, unspecified; Z91.048 Other nonmedicinal substance allergy status; Z79.899 Other long term (current) drug therapy; Z79.890 Hormone replacement therapy
CPT/HCPCS: 36415; 58120; 85025; J1885; J2250; J2405; J2704; J3010; J3490; J7120; 00940